=== PATIENT | male | born 1960 | race Caucasian/White ===

== ENCOUNTER 2021-01-03 07:25 | Emergency (ER) | payer SELFPAY ==
[2021-01-03] MEDS ORDERED: Lidocaine 1% 20 ML MDV ONE (08:04)
== END 2021-01-03 09:15 | disposition home or self-care (01) ==
LOC: MADERS 07:25
DX: L02.512 Cutaneous abscess of left hand (principal); L03.012 Cellulitis of left finger; F17.210 Nicotine dependence, cigarettes, uncomplicated
CPT/HCPCS: 26010

== ENCOUNTER 2021-01-07 11:19 | Emergency (ER) | payer SELFPAY | END 2021-01-07 12:20 | disposition home or self-care (01) | LOC: MADERS 11:19 | DX: Z48.01 Encounter for change or removal of surgical wound dressing (principal); F17.210 Nicotine dependence, cigarettes, uncomplicated | CPT/HCPCS: 99282 ==

== ENCOUNTER 2022-01-06 09:58 | Emergency (ER) | payer SELFPAY ==
[2022-01-06] MEDS ORDERED: Fluorescein Opthalmic Strip ONE (10:34)
[2022-01-06] MEDS ORDERED: Tetracaine 0.5% PF 4 ML BOT ONE (10:34)
== END 2022-01-06 13:50 | disposition home or self-care (01) ==
LOC: MADERS 09:58
DX: T15.02XA Foreign body in cornea, left eye, initial encounter (principal); F17.210 Nicotine dependence, cigarettes, uncomplicated
CPT/HCPCS: 65220

== ENCOUNTER 2023-03-27 11:30 | Emergency (ER) | payer SELFPAY ==
[~2023-03-27 11:30] MED LIST: Lactated Ringer's 1,000 ML BAG ONE
[2023-03-27 12:36] LABS: ALT (SGPT) 22 U/L (8-55); AST (SGOT) 27 U/L (5-34); Albumin 4.2 g/dL (3.4-4.8); Alkaline Phosphatase 59 U/L (40-110); Anion Gap 15 mmol/L (10-20); BUN (Urea Nitrogen) 14 mg/dL (8.4-25.7); Bilirubin, Total 0.3 mg/dL (0.2-1.2); Calc. Creatinine Clearance 0 mL/min (70-130); Calcium 9.2 mg/dL (7.8-10.44); Carbon Dioxide 23 mmol/L (23-31); Chloride 103 mmol/L (98-107); Estimated GFR 90; Glucose 98 mg/dL (80-115); Magnesium 1.8 mg/dL (1.6-2.6); Potassium 4.1 mmol/L (3.5-5.1); Protein, Total 7.2 g/dL (5.8-8.1); Sodium 137 mmol/L (136-145)
[2023-03-27 12:39] LABS: Band 5 % (5-11); Eosinophils 2 % (0-10); Hematocrit 43.8 % (42.0-52.0); Hemoglobin 14.5 g/dL (14.0-18.0); Lymphocytes 22 % (21-51); MDiff Complete? YES; Mean Corpuscular HGB CONC 33.1 g/dL (32.0-36.0); Mean Corpuscular Hemoglobin 30.1 pg (27.0-31.0); Mean Platelet Volume 9.4 fL (7.4-10.4); Monocytes 7 % (0-10); Neutrophil 41 % (42-75); Platelet Adequacy Comment Appears Adequate; Platelet Count 171 10x3/uL (130-400); RBC Distribution Width 12.8 % (11.5-14.5); Reactive Lymphocytes 23 % (0-10); Red Blood Cell (RBC) Count 4.81 mill/uL (4.70-6.10); White Blood Cell (WBC) Count 2.5 10x3/uL (4.8-10.8)
[2023-03-27 12:59] LABS: SARS-CoV-2 NAA Rapid Test DETECTED (NotDetected)
[2023-03-27 13:26] LABS: Bilirubin Negative (Negative); Blood, Urine Negative (Negative); Clarity Clear (Clear); Glucose, Urine (Dipstick) Negative (Negative); Ketone, Urine Trace mg/dL (Negative); Leukocyte Negative (Negative); Nitrite Negative (Negative); Protein, Urine (Dipstick) Negative (Neg-Trace); Urobilinogen 0.2 mg/dL (Less than 2); pH, Urine 5.5 (5.0-9.0)
[2023-03-27 13:29] LABS: Specific Gravity, Urine 1.027 (1.002-1.036)
[2023-03-27 13:37] LABS: Bacteria/HPF Rare-Few HPF (None Seen); CAUTI Indications for Culture Dysuria,urgency,freq; Mucous/LPF 1+ LPF (<2+); RBC/HPF None Seen HPF (0-3); Squamous Epithelial 0-3 HPF (0-3); Urine Culture Reflex No No; WBC/HPF None Seen HPF (0-3)
== END 2023-03-27 14:20 | disposition home or self-care (01) ==
LOC: MADERS 11:30
DX: U07.1 COVID-19 (principal); F17.210 Nicotine dependence, cigarettes, uncomplicated
CPT/HCPCS: 80053; 81001; 82550; 83735; 85025; 94760; 96360; J7120

== ENCOUNTER 2024-05-31 08:09 | Emergency (ER) | payer SELFPAY | END 2024-05-31 09:00 | disposition home or self-care (01) | LOC: MADERS 08:09 | DX: J02.9 Acute pharyngitis, unspecified (principal); F17.220 Nicotine dependence, chewing tobacco, uncomplicated | CPT/HCPCS: 87081; 87430; 99283 ==